=== PATIENT | female | born 1940 | race Caucasian/White ===

== ENCOUNTER 2019-02-28 01:38 | Outpatient (CLI) | payer MEDICARE, SELFPAY ==
[2019-02-28 10:49] LABS: ALT 28 U/L (12-78); AST 18 U/L (15-37); Albumin 3.4 g/dL (3.4-5.0); Alkaline Phosphatase 113 U/L (46-116); Anion Gap 8.3 mmol/L (3-11); BUN 18 mg/dL (7-18); Bilirubin, Total 0.3 mg/dL (0.2-1.0); CO2 27.7 mmol/L (21.0-32.0); CREATININE 0.75 mg/dL (0.55-1.02); Calcium 8.6 mg/dL (8.5-10.1); Calculated LDL 168 mg/dL; Chloride 106 mmol/L (98-107); Cholesterol 225 mg/dL (50-200); Glucose 104 mg/dL (70-100); HDL Cholesterol 42 mg/dL (40-60); Potassium 4.2 mmol/L (3.5-5.1); Sodium 142 mmol/L (136-145); TSH (W/Ref FT4) 3.24 uIU/mL (0.36-3.74); Total Protein 6.6 g/dL (6.4-8.2); Triglyceride 78 mg/dL (30-150)
== END 2019-02-28 01:58 ==
PROVIDERS: PCP Family Medicine; Visit Provider Family Medicine
DX: E03.9 Hypothyroidism, unspecified (principal); I10 Essential (primary) hypertension
CPT/HCPCS: 36415; 80053; 80061; 83721; 84443

== ENCOUNTER 2020-12-27 03:18 | Outpatient (CLI) | payer MEDICARE, SELFPAY ==
[2020-12-27 13:32] LABS: ALT 30 U/L (14-59); AST 20 U/L (15-37); Albumin 3.7 g/dL (3.4-5.0); Alkaline Phosphatase 107 U/L (46-116); Anion Gap 9.4 mmol/L (3-11); BUN 21 mg/dL (7-18); Bilirubin, Total 0.6 mg/dL (0.2-1.0); CO2 27.6 mmol/L (21.0-32.0); CREATININE 0.9 mg/dL (0.55-1.02); Calcium 9.1 mg/dL (8.5-10.1); Chloride 104 mmol/L (98-107); Glucose 100 mg/dL (74-106); Potassium 4.3 mmol/L (3.5-5.1); Sodium 141 mmol/L (136-145); TSH (W/Ref FT4) 1.82 uIU/mL (0.36-3.74); Total Protein 6.9 g/dL (6.4-8.2)
== END 2020-12-27 03:19 | disposition home or self-care (01) ==
LOC: LBO 03:18
PROVIDERS: PCP Family Medicine; Visit Provider Family Medicine
DX: E03.9 Hypothyroidism, unspecified (principal); I10 Essential (primary) hypertension
CPT/HCPCS: 36415; 80053; 84443

== ENCOUNTER 2021-01-14 02:53 | Outpatient (CLI) | payer MEDICARE, SELFPAY ==
--- NOTE | 2021-01-14 07:45 | DI.RAD_ITS ---
Exam(s) XR CHEST 2V PA LATERAL EXAM: XR CHEST 2V PA LATERAL CLINICAL HISTORY: SOB,R06.02 TECHNIQUE: 2D digital imaging was performed. COMPARISON: CR CHEST 2 VIEWS PA,LAT from 01/29/2014 FINDINGS: MEDIASTINUM: Normal. HEART: Normal. PULMONARY VASCULATURE: Normal. LUNGS: Clear. PLEURAL SPACE: No pleural effusion or pneumothorax. BONE:Within normal limits for the patient's age. There is a mild reverse S-type scoliosis of the tho racolumbar spine. OTHER FINDINGS:Normal. IMPRESSION: No acute pulmonary findings. DATA REPOSITORY: RADIATION DOSE DELIVERED:
--- NOTE | 2021-01-14 13:42 | DI.US_ITS ---
APPROVED REPORT EXAM: Comprehensive 2D, Doppler, and color-flow Echocardiogram Patient Location: Out-Patient Historical Guide: Nicolette Powell RDCS (AE) Indications: SOB, HTN Other Information Study Quality: Adequate Conclusion Left Ventricle : The left ventricle is normal size. The left ventricular ejection fraction is within the normal range. There is normal left ventricular wall thickness. There is normal LV segmental wall motion. The left ventricular diastolic function is normal. LVEF is 57%. Right Ventricle : The right ventricle is normal size. The right ventricular systolic function is norm al. The RVSP is 33.2mmHg. Atria : The left atrium size is normal. The right atrium size is normal. Mitral Valve : Mild mitral annular calcification. Mild mitral regurgitation. No evidence of mitral va lve stenosis. Great Vessels : The aortic root is normal in size. The ascending aorta is normal in size. Aortic arch is normal in caliber. IVC is normal in size and collapses >50% with inspiration. Wall motion Left Ventricle The left ventricle is normal size. The left ventricular ejection fraction is within the normal range. There is normal left ventricular wall thickness. There is normal LV segmental wall motion. The left ventricular diastolic function is normal. There is no ventricular septal defect visualized. LVEF is 5 7%. Right Ventricle The right ventricle is normal size. The right ventricular systolic function is normal. The RVSP is 33 .2mmHg. Atria The left atrium size is normal. The right atrium size is normal. The interatrial septum is intact wit h no evidence for an atrial septal defect. Aortic Valve The aortic valve is normal in structure. Aortic valve is trileaflet. There is no aortic valvular sten osis. No aortic regurgitation is present. Mitral Valve Mild mitral annular calcification. No evidence of mitral valve stenosis. Mild mitral regurgitation. Tricuspid Valve The tricuspid valve is normal in structure. There is no tricuspid valve stenosis. Moderate tricuspid regurgitation. Pulmonic Valve The pulmonary valve is normal in structure. There is no pulmonic valvular stenosis. Trace pulmonic re gurgitation. Great Vessels The aortic root is normal in size. The ascending aorta is normal in size. Aortic arch is normal in ca liber. IVC is normal in size and collapses >50% with inspiration. Pericardium There is no pericardial effusion. 2D Dimensions IVSD d PLAX 0.70 cm F: 0.6-1.0 LV Vol A2C d MOD 64.5 mL LVPW d PLAX 0.74 cm F: 0.6 - 1.0 LV Vol A4C d MOD 53.7 mL LVID d PLAX 3.55 cm F: 3.8 - 5.2 LA vol/ BSA A2C s A-L 18.1 mL/m2 LVDs 2.40 cm F: 2.2 - 3.5 LA vol/ BSA A4C s A-L 19.8 mL/m2 Ao Root d 2.82 cm F: 2.7 - 3.3 LA Vol/ BSA Biplane s A-L 21.0 mL/m2 RA Area A4C 10.97 cm2 LA Area A4C s MOD 14.44 cm2 RA Vol/ BSA A4C s A-L 14.5 mL/m2 LA Area A2C s MOD 12.42 cm2 Ao Asc Diam d 3.15 cm F: 2.3 - 3.1 LV EF A4C MOD 56.7 % LV EF Teichholz 60.0 % LV EF A2C MOD 56.9 % LVEF (Barry's) 57.13 % F: 54 - 74 LV EF Biplane MOD 57.1 % LV Volume 48.48 mL F: 46 - 106 SV 34.77 mL LV Volume Index 28.85 mL/m2 F: 29 - 61 SV Index 20.62 mL/m2 LV Vol Biplane MOD 60.9 mL FS 31.15 % M-Mode TAPSE 2.09 cm (M/F) >1.7 LV Diastology MV E' medial 0.098 (>0.07 m/s) E/A Ratio 0.8 LV E/e MED 9.40 (<14) MV E Vmax 0.92 (0.4-1.3 m/s) MV E' lateral 0.086 (>0.1 m/s) MV A Vmax 1.15 (0.4-1.3 m/s) LV E/e LAT 10.75 (<14) MV E/A Ratio 0.77 MV E/E' medial 9.41 MV E/E' lateral 10.75 Aortic Valve LVOT Area 2.58 cm2 AoV Area Vmax 2.44 cm2 LVOT Vmax 1.06 m/s AoV Area/ BSA (Vmax) 1.45 cm2/m2 LVOT Mean Ramone. 0.72 m/s SHASHA Mean Ramone. 2.53 cm2 LVOT Peak Grad 4.5 mmHg SHASHA Mean Ramone. Index 1.50 cm2/m2 LVOT Mean Grad 2.4 mmHg LVOT VTI 0.230 m LVOT Diam s 1.80 cm AoV Vmax 1.12 m/s Velocity Ratio 0.94 AoV Mean Ramone. 0.73 m/s AoV Peak Grad 5.1 mmHg LVOT SV 59.40 mL AoV Mean Grad 2.4 mmHg AoV VTI 0.205 m AoV Area VTI 2.90 cm2 AoV Area/ BSA (VTI) 1.72 cm/m2 Mitral Valve MV DT 200 (160-240 msec) MR Vmax 5.21 m/s MV PHT 58 msec MR VTI 1.613 m MV Area PHT 3.79 cm2 MR Peak Grad 108.4 mmHg MV VTI 0.380 m MR Mean Grad 77.4 mmHg MV Area VTI 1.56 (4.0-6.0 cm2) MR PISA Radius 0.61 cm MR EROA 0.16 cm2 MR Aliasing Velocity 0.35 m/s MR PISA 2.35 cm2 Pulmonary Valve PV Vmax 0.94 (0.5-1.5 m/s) RVOT Peak Gr. 2.04 mmHg PV Peak Grad 3.5 mmHg RVOT Mean Gr. 1.10 mmHg PV Mean Grad 1.8 mmHg RVOT VTI 0.137 m PV VTI 0.169 m RVOT Vmax 0.71 m/s Tricuspid Valve TR Peak Grad 30.1 mmHg TR Vmax 2.75 m/s RA Pressure 3.00 mmHg RVSP (TR) 33.2 mmHg
== END 2021-01-14 03:13 ==
PROVIDERS: PCP Family Medicine; Visit Provider Family Medicine
DX: R06.02 Shortness of breath (principal); I10 Essential (primary) hypertension; I34.0 Nonrheumatic mitral (valve) insufficiency
CPT/HCPCS: 93306; 71046

== ENCOUNTER 2021-05-15 14:46 | Outpatient (REF) | payer MEDICARE, SELFPAY ==
[2021-05-15 18:06] LABS: Bilirubin Negative (Negative); Blood Trace-intact (Negative); Clarity Clear (Clear); Glucose 100 mg/dL (Negative); Ketones Trace mg/dL (Negative); Leukocyte Esterase Negative (Negative); Nitrite Negative (Negative)
[2021-05-15 18:15] LABS: Bacteria Negative HPF (Negative); C & S Indicated? No; Casts Negative LPF (Negative); Crystals Negative HPF (Negative); Epithelial Cells Negative HPF (Negative); Mucus Negative (Negative); Other Cells Negative (Negative); RBC Negative HPF (0-2)
[2021-05-17 11:43] LABS: COVID-19 RT-PCR UVMMC Result Negative (Negative)
== END 2021-05-15 14:47 | disposition home or self-care (01) ==
LOC: LBN 14:46
PROVIDERS: PCP Family Medicine; Visit Provider Family Medicine
DX: R50.9 Fever, unspecified (principal); R82.998 Other abnormal findings in urine; Z20.822 Contact with and (suspected) exposure to COVID-19
CPT/HCPCS: U0003; 81003; 81015

== ENCOUNTER 2021-05-22 01:24 | Outpatient (CLI) | payer MEDICARE, SELFPAY ==
--- NOTE | 2021-05-22 06:30 | DI.NM_ITS ---
APPROVED REPORT Exam: Exercise Treadmill Patient Location: Out-Patient Room/Bed: Stress Nurse: Jasmin Sims RN Ordering Provider:ASHLEY GALLOWAY, Contact Number: [phone] BMI: 28.70 Baseline Rhythm: Sinus Rhythm Indications: SOB Medical History Medical History: HLD, HTN, Neoplasm of breast s/p lumpectomy, Murmur Cardiac Medications: Losartan, Albuterol sulfate, , Allergies: Sulfamethoxazole, Trimethoprim, Codeine, Lisinopril Cardiac Risk Factors: HTN, Hyperlipidemia, FHX of CAD Previous Cardiac Procedures: None Pretest Chest Pain Characteristics: No chest pain Exercise History: Physically active Physical Disabilities: None Lung Sounds: Clear to auscultation Heart Sounds: Regular, Murmur Stress Test Details Test: Exercise stress testing was performed using a Wade protocol. Nuclear Acquisition: Rest Tc-99m/Stress Tc-99m 1 day Rest Isotope: Tc-99m Sestamibi. Dose: 10.0 Date: 05/22/2021 Injection Time: 0855 Stress Isotope: Tc-99m Sestamibi. Dose: 31.9 Date: 05/22/2021 Injection Time: 1010 HR Resting HR Supine: 68 bpm Max Heart Rate (APMHR): 139.143183 bpm Resting HR Standin bpm Target HR (85% APMHR): 118.887823 bpm Max HR Achieved: 141 bpm % of APMHR: 101.44 Recovery HR: 89 bpm HR response to stress: Normal HR response to stress BP Resting BP Supine: 134/88 mmHg Resting BP Standin/92 mmHg Max BP: 180/94 mmHg Recovery BP: 170/96 mmHg BP response to stress: Blunted blood pressure response to stress. ECG Resting ECG: Sinus Rhythm Ectopy: None Stress ECG: Sinus Tachycardia ST Change: No significant ST segment changes noted Arrhythmia: None Recovery ECG: Sinus Rhythm, Recovery ST Change: No significant ST segment changes noted Recovery Arrhythmia: PVCs Clinical Reason for Termination: Fatigue Stress Symptoms: Dyspnea Exercise duration: 5 min42 sec Highest Stage Reached: Stage 2: 2.5 mph at 12% grade. Exercise capacity: 7.05 METs Rate Pressure Product: [id number] Stress ECG Conclusion 1. The resting electrocardiogram was within normal limits 2. Patient exercised on the Wade protocol and completed a workload of 7.05 METS, limited by shortnes s of breath 3. Normal heart rate and blood pressure response to exercise. Patient achieved greater than 100% of predicted heart rate for age 4. Electrocardiographically there was no evidence of myocardial ischemia 5. Sporadic PVCs were noted in recovery Stress Test Summary STAGE Time (mins) Speed (mph) Grade (%) HR BP SYMPTOMS METS Supine 68 134/88 Standing 74 160/92 1 3 1.7 10 125 SpO2 97% 4.6 2 6 2.5 12 SpO2 93%, mild SOB 7 1 min recovery 125 162/98 3 min recovery 99 180/94 6 min recovery 89 170/96 MPI Conclusion Normal myocardial perfusion without evidence of ischemia or prior infarction EF 86% Radiologist Interpretation Radiologist agrees with [employer]'s Interpretation. Radiologist Interpretation by: Wolfgang Cordon MD Interpretation Date/Time: 05/22/2021 16:11:59
== END 2021-05-22 01:44 ==
PROVIDERS: PCP Family Medicine; Visit Provider Family Medicine
DX: R06.02 Shortness of breath (principal); I10 Essential (primary) hypertension; E78.5 Hyperlipidemia, unspecified; Z82.49 Family history of ischemic heart disease and other diseases of the circulatory system; I49.3 Ventricular premature depolarization
CPT/HCPCS: 78452; 93016; 93018; 93017

== ENCOUNTER 2022-04-08 02:51 | Outpatient (CLI) | payer MEDICARE, SELFPAY ==
[2022-04-08 10:47] LABS: Abs Immature Grans 0.02 10^3/uL (0.0-0.06); Absolute Basophil Count 0.04 10^3/uL (0.0-0.2); Absolute Lymphocyte Count 1.92 10^3/uL (1.2-3.4); Absolute Monocyte Count 0.47 10^3/uL (0.1-0.8); Absolute Neutrophil Count 4.55 10^3/uL (1.2-6.7); Basophils % 0.6; Eosinophils % 2.8; HCT 42.7 % (36.0-46.0); HGB 14.3 g/dL (11.2-15.7); Immature Grans % 0.3; Lymphocytes % 26.7; MCH 29.4 pg (27.0-33.0); MCHC 33.5 % (32.0-36.0); MCV 88 fL (80-95); MPV 9.2 fL (8.0-11.0); Monocytes % 6.5; Neutrophils % 63.1; Platelet Count 237 10^3/uL (130-400); RBC 4.86 10^6/uL (3.93-5.22); RDW 12.4 % (11.7-14.6); RDW-SD 40.3 fL
[2022-04-08 11:36] LABS: ALT 28 U/L (14-59); AST 22 U/L (15-37); Albumin 3.4 g/dL (3.4-5.0); Alkaline Phosphatase 100 U/L (46-116); Anion Gap 8.2 mmol/L (3-11); BUN 22 mg/dL (7-18); Bilirubin, Total 0.7 mg/dL (0.2-1.0); CO2 27.8 mmol/L (21.0-32.0); Calcium 8.7 mg/dL (8.5-10.1); Chloride 106 mmol/L (98-107); Glucose 105 mg/dL (74-106); Potassium 4.2 mmol/L (3.5-5.1); Sodium 142 mmol/L (136-145); TSH (W/Ref FT4) 2.44 uIU/mL (0.36-3.74); Total Protein 7.1 g/dL (6.4-8.2)
== END 2022-04-08 02:52 | disposition home or self-care (01) ==
LOC: LBO 02:51
PROVIDERS: PCP Family Medicine; Visit Provider Family Medicine
DX: E03.9 Hypothyroidism, unspecified (principal); I10 Essential (primary) hypertension; E78.5 Hyperlipidemia, unspecified; R06.02 Shortness of breath
CPT/HCPCS: 36415; 80053; 84443; 85025

== ENCOUNTER 2023-02-01 16:23 | Outpatient (CLI) | payer MEDICARE, SELFPAY ==
[2023-02-01 13:03] LABS: ALT 28 U/L (14-59); AST 21 U/L (15-37); Albumin 3.5 g/dL (3.4-5.0); Alkaline Phosphatase 112 U/L (46-116); Anion Gap 9.4 mmol/L (3-11); BUN 17 mg/dL (7-18); Bilirubin, Total 0.9 mg/dL (0.2-1.0); CO2 28.6 mmol/L (21.0-32.0); CREATININE 0.9 mg/dL (0.55-1.02); Calcium 8.9 mg/dL (8.5-10.1); Chloride 106 mmol/L (98-107); Estimated GFR 63.83 (mL/min/1.73m2); Glucose 106 mg/dL (74-106); Potassium 3.9 mmol/L (3.5-5.1); Sodium 144 mmol/L (136-145); TSH (W/Ref FT4) 2.65 uIU/mL (0.36-3.74); Total Protein 7.1 g/dL (6.4-8.2)
== END 2023-02-01 16:24 | disposition home or self-care (01) ==
LOC: LOS 16:30
PROVIDERS: PCP Family Medicine; Visit Provider Family Medicine
DX: E03.9 Hypothyroidism, unspecified (principal); I10 Essential (primary) hypertension; R25.2 Cramp and spasm
CPT/HCPCS: 36415; 80053; 83735; 84443

== ENCOUNTER 2024-07-20 02:59 | Outpatient (CLI) | payer MEDICARE, SELFPAY ==
--- NOTE | 2024-07-20 | DI.DEXA_ITS ---
Exam(s) XR DEXA BONE DENSITY W/WO MANISHA EXAM: XR DEXA BONE DENSITY W/WO MANISHA CLINICAL HISTORY: NEOPLASM CENTRAL PORTION RT BREAST, AT RISK OSTEOPOROSIS, C50.111, Z17.0 TECHNIQUE: Routine DEXA evaluation of the lumbar spine, hip, or forearm. COMPARISON: Prior DEXA scan of 2007 FINDINGS: Performed on a [id number] unit. Lateral image: No compression fracture evident. Lumbar Spine total T-score: -4.2. Prior reading in 2008 was -4.0 Hip total T-score:-1.9. This is identical reading to 2008 Independent reading at the level of the femoral neck yields T-score of -2.3 Forearm total T-score: -2.1 IMPRESSION: Bone mineral density measures in the osteopenia range for the hip and wrist. Fracture risk is modera te. Bone mineral density measures in the osteoporosis range for the lumbar spine. Fracture risk is high in the lumbar spine. Note: Any spine fracture indicates 5x risk for subsequent spine fracture and 2x risk for subsequent h ip fracture. World Health Organization criteria for BMD interpretation classify patients: Normal...... T- Score at or above -1.0 Osteopenic... T- Score between -1.0 and -2.5 Osteoporosis... T-Score at or below -2.5
== END 2024-07-20 03:19 ==
LOC: DI 02:59
PROVIDERS: PCP General Practice; Visit Provider Student in an Organized Health Care Education/Training Program
DX: Z79.811 Long term (current) use of aromatase inhibitors (principal); M85.89 Other specified disorders of bone density and structure, multiple sites
CPT/HCPCS: 77080